=== PATIENT | female | born 1950 | race Caucasian/White ===

== ENCOUNTER → 2016-11-03 | Outpatient (CLI) | payer MEDICARE ==
[~2016-11-03] MED LIST: ANEXSIA 7.5/3251 TA1 PO; BYSTOLIC10 MG PO; CALCIUM; CYMBALTA30 MG PO; HAIR; MULTI VITAMIN1 EACH PO; PROTONIX PO; SKIN; VITAMIN B 12; VITAMIN C; VITAMIN D; VITAMIN E15 U/0.3 M; [UNRECOGNIZED DRUG - OTHER]
--- NOTE | ~2016-11-03 | MY29 ---
[facility] A Service of [facility] & [facility] RADIOLOGY TEXT RESULTS PATIENT: AUGUSTINE VALLEJO LOCATION: [facility] : 50 UNIT #: [id number] AGE: [address]: Ne Childs APRN SEX: F ORDER DR: [id number] [facility] [address] [place], [place] [address] [id number] O MR#: [id number] Acc #: [id number] NAME: AUGUSTINE VALLEJO : 1950 SEX: F STUDY DATE/TIME: 11/03/2016 12:23 UNIT: [facility] ROOM: STUDY DESCRIPTION: MY CELENA SCREENING W/ CAD BILAT Attending Physician: Ne Childs A.P.R.N. Referring Physician: Ne Childs A.P.R.N. Ordering Physician: Ne Childs A.P.R.N. Primary Care Physician: Ne Childs A.P.R.N. MEDICAL IMAGING REPORT This report is preliminary unless electronic signature is present EXAM Digital screening mammogram 11/03/2016 HISTORY 66-year-old woman, positive family history, mother age 65, sister age 60. Previous right breast biopsy. Annual screening. COMPARISON STUDIES Comparison mammograms date to 08/31/2004 with most recent screening comparison 08/05/2015. FINDINGS Digital imaging of each breast was completed utilizing screening protocol. Review includes FDA-approved CAD device. Breast parenchyma is heterogeneous and moderately dense. There is a small nodularity in each breast. Subareolar duct prominence is noted in each breast. There is no interval occurring breast mass. There are no suspicious microcalcifications and no architectural deformity. IMPRESSION Stable benign mammogram. Annual screening recommended. BIRADS: 2 Benign Finding. Patients over the age of 40 are entered into a reminder system with target due date for the next mammogram. A result letter will also be sent to the patient. Dictated by... Javon Yoder M.D. THIS IS AN ELECTRONICALLY VERIFIED REPORT [facility] A Service of [facility] & [facility] RADIOLOGY TEXT RESULTS PATIENT: AUGUSTINE VALLEJO LOCATION: [facility] : 50 UNIT #: [id number] AGE: [address]: Ne Childs APRN SEX: F ORDER DR: Javon oYder M.D. at 11/06/2016 8:05 AM KALI/jah TD: 11/03/2016 17:37 JOB #: [id number] MEDICAL IMAGING REPORT Page 1 of 1 COPY
== END | disposition home or self-care (01) ==
LOC: CWCC 12:00
DX: Z12.31 Encounter for screening mammogram for malignant neoplasm of breast (principal); Z80.3 Family history of malignant neoplasm of breast
CPT/HCPCS: G0202; J2250; J2270; J2765